=== PATIENT | male | born 1990 | race Hispanic/Latino ===

== ENCOUNTER 2025-05-12 06:21 | Emergency (ER) | payer OTHER, SELFPAY ==
[2025-05-12 06:23] VITALS: BP 127/84; PULSE 72; RESP 16; TEMP 36.8; O2SAT 100; BMI 39.1
--- NOTE | 2025-05-12 06:32 | ED.VIS.LOWEX ---
HPI History of Present Illness HPI Narrative: Patient presents with left foot pain. It has gradually gotten worse. Patient does not think he stepped on anything. Patient states his pain is throbbing. Patient states it is worse with walking. Patient denies any paresthesias or weakness. Patient states his pain has been constant for several days. Patient denies any fevers or chills. Patient denies any discharge or drainage. Chief Complaint: Wound Informant: patient Limited: language barrier Occured/Mechanism Mechanism/Context: Yes puncture wound Onset/Context/Timing Onset: Days Context: Gradual Onset Timing: Continuous Quality of Pain: Throbbing Location: Plantar aspect left heel Worsened by: Weightbearing Relieved by: Nothing Associated Symptoms Associated Symptoms: Negative for Parasthesia or Weakness PFSH PFSH Medical History no medical history no medical history Home Medications ?Medication ?Instructions ?Recorded ?Last Taken ?Type aspirin 81 mg tablet,delayed 162 mg PO DAILY 05/12/25 Unknown History release (Adult Aspirin Regimen) cephalexin 500 mg capsule 500 mg PO Q6 #40 CAPSULES 05/12/25 Unknown Rx Allergy/AdvReac Type Severity Reaction Status Date / Time No Known Allergies Allergy Verified 05/12/25 06:22 Social History Smoking Status: Never smoker ROS ROS ED Constitutional Constitutional ED: Denies chills or fever(s) Cardiovascular Cardiovascular: Denies chest pain or palpitations Respiratory/Chest Respiratory/Chest: Denies cough or dyspnea Gastrointestinal Gastrointestinal: Denies nausea or vomiting Integumentary Denies rash Neurologic Neurologic: Denies paresthesias or weakness Allergic/Immunologic Allergic/Immunologic ED: Denies urticaria EXAM Physical Exam Const Vital Signs: 05/12/25 06:23 05/12/25 06:25 Temperature 98.2 F Temperature Source Oral Pulse Rate 72 Respiratory Rate 16 Blood Pressure 127/84 H Blood Pressure Mean 98 Pulse Ox 100 Oxygen Delivery Method Room Air Room Air Positive well nourished and well developed General Appearance ED: well developed and NAD HEENT Reports moist mucous membranes normocephalic and atraumatic Neck full ROM and supple Extremity Extremity Narrative: There is tenderness to palpation over the plantar aspect of the left heel. There appears to be an old puncture wound over this area. There is no discharge or drainage noted. There is no bony crepitance or step-off noted. Range of motion was slightly limited in dorsiflexion of the ankle secondary to pain. Sensation was intact to light touch in all digits. Capillary refill was less than 2 seconds in all digits. Neuro oriented x3, CN's II-XII intact bilaterally, moves all extremities and no sensory deficits noted Sensorium / Orientation: alert Motor Exam: strength 5/5 throughout Psych mental status grossly normal MDM MDM MDM Narrative Medical decision making narrative: Differential diagnosis includes abscess, retained foreign body, cellulitis, and puncture wound. X-rays of the left foot will be obtained to assess for retained foreign body. History & Record Review Additional record(s) reviewed:: No prior records Radiography Diagnostic Testing: X-rays of the left foot were obtained. There are 3 views. On my independent interpretation, there is no acute fracture. There is no radiopaque foreign body. There is no soft tissue swelling. Radiologist also interpreted the x-rays and agrees. Treatment and Re-Evaluation Narrative: Patient was given a dose of Keflex here. Patient was given tetanus booster. Patient was advised of the need for incision and drainage. Patient is agreeable with this. After informed consent was obtained, the area was cleaned with chlorhexidine prep. The area was anesthetized with 1% plain lidocaine locally. A small cruciate incision was made using an 11 blade scalpel. A small amount of purulent drainage was expressed. The wound was left open. Bacitracin dressing was applied. Patient tolerated the procedure well. Patient was instructed to use warm compresses. Patient was given a dose of Keflex here. Patient was given a prescription for Keflex. Patient was instructed to follow-up with her primary care physician in 5 to 7 days. Patient understood and was agreeable with the plan. All questions were answered. Procedures Other Procedures Procedure(s): The left heel area was cleaned with chlorhexidine prep. The area was anesthetized with 1% plain lidocaine locally. A small cruciate incision was made using an 11 blade scalpel. A small amount of purulent drainage was expressed. The wound was left open. Bacitracin dressing was applied. Patient tolerated the procedure well. Discharge Plan Triage Chief Complaint: Wound ED Provider: Dagoberto Becker Dx/Rx/DC Orders Clinical Impression: Abscess of left heel, Elevated blood pressure reading Instructions: ED Abscess Incision And Drainage Prescriptions: New cephalexin 500 mg capsule 500 mg PO Q6 Qty: 40 0RF No Action aspirin [Adult Aspirin Regimen] 81 mg tablet,delayed release (DR/EC) 162 mg PO DAILY Primary Care Provider: Care Physician,No Primary Referrals: NOT,DEFINED [Non-Staff, None] Print Language: Turkmen Disposition Disposition: Home, Self Care
--- NOTE | 2025-05-12 06:48 | RAD_ITS ---
PROCEDURE: FOOT MIN 3 VIEWS 05/12/2025 REASON FOR EXAM: INJURY/PAIN TECHNIQUE: Procedure Code: RADFO Modality: DX Procedure: FOOT MIN 3 VIEWS Laterality: Left foot COMPARISON: None FINDINGS: Bones: No visible fracture. No suspicious bone lesion. Joints: Normal alignment. Soft tissues: Soft tissues are unremarkable. Other: RAD/Foot min 3 Views IMPRESSION: NEGATIVE FOOT SERIES Reading Location: [facility]
[2025-05-12] MEDS: Lidocaine 1% (20 ml mdv) 20 ML Vial INFILT (07:01)
[2025-05-12 07:26] VITALS: BP 131/79; PULSE 65; RESP 15; TEMP 36.8; O2SAT 100
== END 2025-05-12 07:33 | disposition home or self-care (01) ==
PROVIDERS: Emergency Provider Emergency Medicine; Visit Provider Emergency Medicine
DX: L02.612 Cutaneous abscess of left foot (principal); R03.0 Elevated blood-pressure reading, without diagnosis of hypertension; Z23 Encounter for immunization
CPT/HCPCS: 10060; 73630; 90715; 96372; 99282